=== PATIENT | female | born 1990 | race Two or more races ===

== ENCOUNTER 2017-08-25 18:35 | Emergency (ER) | payer MEDICAID ==
[~2017-08-25] VITALS: Ht 167.6 cm; Wt 71.8 kg
[2017-08-25] MEDS ORDERED: KETOROLAC 30 MG/1 ML IM ONE (19:30)
[2017-08-25] MEDS ORDERED: METHOCARBAMOL 750 MG TABLET ONE (19:30)
[2017-08-25] MEDS ORDERED: KETOROLAC 30 MG/1 ML ONE (19:30)
[2017-08-25] MEDS ORDERED: METHOCARBAMOL 750 MG TABLET PO ONE (19:30)
[2017-08-25 20:00] VITALS: BP 124/74
== END 2017-08-25 20:11 | disposition home or self-care (01) ==
LOC: ED 19:45
DX: S39.012A Strain of muscle, fascia and tendon of lower back, initial encounter (principal); J45.909 Unspecified asthma, uncomplicated; W11.XXXA Fall on and from ladder, initial encounter; Y93.89 Activity, other specified; Y92.89 Other specified places as the place of occurrence of the external cause; Y99.9 Unspecified external cause status
CPT/HCPCS: 72072; 72110; 96372; 99284; J1885

== ENCOUNTER 2017-12-28 20:38 | Emergency (ER) | payer SELFPAY ==
[~2017-12-28] VITALS: Ht 167.6 cm; Wt 70.7 kg
[2017-12-28 20:39] VITALS: BP 117/64
== END 2017-12-28 21:19 | disposition left against medical advice (07) ==
LOC: ED 21:13
DX: Z53.21 Procedure and treatment not carried out due to patient leaving prior to being seen by health care provider (principal)

== ENCOUNTER 2019-09-06 08:09 | Emergency (ER) | payer SELFPAY ==
[~2019-09-06] VITALS: Ht 167.6 cm; Wt 82.0 kg
[2019-09-06 08:28] VITALS: BP 115/63
== END 2019-09-06 09:18 | disposition home or self-care (01) ==
LOC: ED 09:12
DX: J02.0 Streptococcal pharyngitis (principal); J45.909 Unspecified asthma, uncomplicated; F17.200 Nicotine dependence, unspecified, uncomplicated
CPT/HCPCS: 99283

== ENCOUNTER 2020-10-07 15:08 | Emergency (ER) | payer SELFPAY ==
[~2020-10-07] VITALS: Ht 167.6 cm; Wt 75.4 kg
--- NOTE | 2020-10-07 15:31 | NUR ---
patient arrives to er with pain and numbness/tingling to right arm that is transient over last five days. no other symptoms.
[2020-10-07] MEDS ORDERED: KETOROLAC 30 MG/1 ML IM ONE (16:30)
[2020-10-07] MEDS ORDERED: KETOROLAC 60 MG/2 ML ONE (16:32)
[2020-10-07 17:50] VITALS: BP 122/78
== END 2020-10-07 17:52 | disposition home or self-care (01) ==
LOC: ED 15:53
DX: M54.12 Radiculopathy, cervical region (principal); R10.11 Right upper quadrant pain; R20.0 Anesthesia of skin
CPT/HCPCS: 72125; 96372; 99284; J1885

== ENCOUNTER 2021-03-05 20:05 | Emergency (ER) | payer OTHER ==
[~2021-03-05] VITALS: Ht 170.2 cm; Wt 67.8 kg
[2021-03-05 20:24] VITALS: BP 122/46
[2021-03-05 21:14] LABS: BASOPHILS % (AUTO) 1 % (0-1); EOSINOPHILS % (AUTO) 1 % (1-7); LYMPHOCYTES % (AUTO) 32 % (22-44); MEAN CORPUSCULAR HEMOGLOBIN 31.8 pg (27.0-34.8); MEAN CORPUSCULAR HGB CONC 33.6 g/dL (32.4-35.8); MEAN PLATELET VOLUME 8.2 fL (7.4-10.4); MONOCYTES % (AUTO) 8 % (2-9); NEUTROPHILS % (AUTO) 58 % (42-75); PLATELET COUNT 314 x10^3/uL (130-400); RED BLOOD COUNT 4.76 x10^6/uL (3.82-5.3); RED CELL DISTRIBUTION WIDTH 12.5 % (9.6-15.2)
[2021-03-05 21:26] LABS: ALBUMIN 3.6 g/dL (3.4-5.0); ANION GAP 3 mmol/L (5-15); CHLORIDE 106 mmol/L (98-107)
[2021-03-05 21:34] LABS: ALANINE AMINOTRANSFERASE 24 U/L (12-78); ALKALINE PHOSPHATASE 73 U/L (45-117); BILIRUBIN,TOTAL 0.3 mg/dL (0.2-1.0); CREATININE 1.02 mg/dL (0.55-1.02); TOTAL PROTEIN 7.1 g/dL (6.4-8.2); TROPONIN I < 0.015 ng/mL (0.000-0.045)
--- NOTE | 2021-03-05 23:55 | NUR ---
PT CAME IN CO CP WHICH HE DESCRIBES SHARP. COMES AND GOES. EKG COMPLETE. CONNECTED TO MONITORS. IDENTIFIES A MAN
== END 2021-03-06 00:11 | disposition home or self-care (01) ==
LOC: ED 21:00
DX: R07.89 Other chest pain (principal)
CPT/HCPCS: 36415; 71045; 80053; 84484; 85025; 93005; 99285